=== PATIENT | female | born 1970 | race Hispanic/Latino ===

== ENCOUNTER 2022-01-12 12:24 | Emergency (ER) | payer OTHER ==
[~2022-01-12] VITALS: Ht 149.9 cm; Wt 91.6 kg
[2022-01-12 12:44] LABS: BASOPHILS % (AUTO) 1.2 % (0.0-5.0); EOSINOPHILS % (AUTO) 1.5 % (0.0-8.0); HEMATOCRIT 45.9 % (36-48); LYMPHOCYTES % (AUTO) 27.9 % (21.0-51.0); MEAN CORPUSCULAR HEMOGLOBIN 34.7 pg (27.0-33.0); MEAN CORPUSCULAR HGB CONC 39.4 g/dL (32.0-36.0); MEAN CORPUSCULAR VOLUME 87.9 fL (79-99); NEUTROPHILS % (AUTO) 58.7 % (40.0-77.0); PLATELET COUNT (AUTO) 299 K/uL (130-400); RED BLOOD CELL COUNT(AUTO) 5.22 MIL/uL (4.00-5.50); RED CELL DISTRIBUTION WIDTH 14.3 % (11.0-15.5); WHITE BLOOD COUNT (AUTO) 8.1 K/uL (4.8-10.8)
[2022-01-12 13:03] LABS: POTASSIUM 4.2 mmol/L (3.5-5.1)
[2022-01-12 13:28] LABS: APPEARANCE,URINE TURBID (CLEAR); BILIRUBIN,URINE NEGATIVE (NEGATIVE); COLOR,URINE STRAW (YELLOW); GLUCOSE, URINE (UA) >=1000 mg/dL (NEGATIVE); KETONES,URINE 15 mg/dL (NEGATIVE); LEUKOCYTE ESTERASE ,URINE TRACE (NEGATIVE); NITRATE,URINE NEGATIVE (NEGATIVE); OCCULT BLOOD,URINE SMALL (NEGATIVE); PH,URINE 5.5 (5.0-8.0); PROTEIN,URINE TRACE mg/dL (NEGATIVE); UROBILINOGEN,URINE 0.2 mg/dL (0.2-1.0)
[2022-01-12 13:30] LABS: BILIRUBIN,TOTAL 0.7 mg/dL (0.2-1.0); TOTAL PROTEIN, SERUM 8.5 g/dL (6.0-8.3)
[2022-01-12 13:31] LABS: BACTERIA,URINE Moderate /HPF (None Seen); SQUAMOUS EPITHELIAL CELL,UR Moderate /HPF (0-2)
[2022-01-12 13:32] LABS: YEAST,URINE BUDDING Few /HPF (None Seen)
[2022-01-12 13:48] LABS: ALBUMIN 3.4 g/dL (3.5-5.0)
[2022-01-12 13:50] LABS: CREATININE 0.5 mg/dL (0.5-1.5)
[2022-01-12] MEDS ORDERED: 0.9%NACL 1000ML 1,000 ML IV SCH (14:00)
[2022-01-12] MEDS ORDERED: ONDANSETRON 4MG INJ IVP SCH (14:00)
[2022-01-12] MEDS ORDERED: MORPHINE 4 MG SYG IV SCH (14:00)
[2022-01-12] MEDS ORDERED: KETOROLAC 30MG VIAL (30MG/ML) IV SCH (14:00)
[2022-01-12] MEDS ORDERED: INSULIN HUMULIN R 100 UNIT/ML 3ML SQ SCH (15:00)
[2022-01-12] MEDS ORDERED: TRAM50TA4 PO (15:59)
[2022-01-12 16:30] VITALS: BP 124/74
== END 2022-01-12 16:32 | disposition home or self-care (01) ==
LOC: EDH 12:24
DX: R10.11 Right upper quadrant pain (principal); E11.65 Type 2 diabetes mellitus with hyperglycemia; E78.00 Pure hypercholesterolemia, unspecified; I10 Essential (primary) hypertension; Z79.1 Long term (current) use of non-steroidal anti-inflammatories (NSAID); Z79.4 Long term (current) use of insulin
CPT/HCPCS: 36415; 76705; 80053; 81001; 82150; 82948; 83690; 84484; 85025; 87077 ×2; 87088; 87186 ×2; 93005; 96361; 96372; 96374; 96375; 99285; J1815; J1885; J2270; J2405; J7030

== ENCOUNTER 2022-09-07 08:07 | Emergency (ER) | payer OTHER ==
[~2022-09-07] VITALS: Ht 149.9 cm; Wt 89.8 kg
[~2022-09-07 08:07] MED LIST: TRAM50TA4 PO
[2022-09-07 08:11] VITALS: BP 135/75
[2022-09-07] MEDS ORDERED: GABA300C PO (08:41)
[2022-09-07] MEDS ORDERED: IBUP-1493 PO (08:41)
[2022-09-07] MEDS ORDERED: VALA10002 PO (08:41)
[2022-09-07] MEDS ORDERED: LIDOP TD (08:41)
== END 2022-09-07 08:59 | disposition home or self-care (01) ==
LOC: EDH 08:07
DX: B01.9 Varicella without complication (principal); R10.12 Left upper quadrant pain; E11.42 Type 2 diabetes mellitus with diabetic polyneuropathy; I10 Essential (primary) hypertension; E78.00 Pure hypercholesterolemia, unspecified